=== PATIENT | male | born 1950 | race Caucasian/White ===

== ENCOUNTER 2022-04-21 17:59 | Inpatient (IN) | payer MEDICARE ==
[~2022-04-21] VITALS: Ht 180.3 cm; Wt 109.0 kg
[~2022-04-21 17:59] MED LIST: NORCO 7.5-3251 EACH PO; NORVASC 5 MG TAB5 MG PO
[2022-04-21 20:10] LABS: HEMOGLOBIN 17.9 gm/dl (14.0-17.5); RED BLOOD COUNT 5.94 M/UL (4.20-5.50); WHITE BLOOD COUNT 7.3 K/UL (4.5-11.0)
[2022-04-22 02:08] LABS: HEMOGLOBIN 15.9 gm/dl (14.0-17.5); RED BLOOD COUNT 5.29 M/UL (4.20-5.50); WHITE BLOOD COUNT 5.3 K/UL (4.5-11.0)
[2022-04-22] MEDS ORDERED: HYDROCODON-ACE1 EAC4 PO (09:20)
[2022-04-22] MEDS ORDERED: RAMIPRIL10 MG PO (09:21)
[2022-04-22] MEDS ORDERED: TRANDATE 200 M200 MG PO (09:25)
[2022-04-22] MEDS ORDERED: CATAPRES 0.1MG0.1 MG PO (09:27)
[2022-04-22 14:39] LABS: ADENOVIRUS F 40/41 Not Detected (Negative); ASTROVIRUS Not Detected (Negative); CAMPYLOBACTER Not Detected (Negative); CRYPTOSPORIDIUM Not Detected (Negative); E.COLI 0157 Not Detected (Negative); ENTAMOEBA HISTOLYTICA Not Detected (Negative); ENTEROAGGREGATIVE E.COLI (EAEC Not Detected (Negative); ENTEROPATHOGENIC E.COLI (EPEC) Not Detected (Negative); ENTEROTOXIGENIC E.COLI (ETEC) Not Detected (Negative); GIARDIA LAMBLIA Not Detected (Negative); NOROVIRUS GI/GII Not Detected (Negative); PLESIOMONAS SHIGELLOIDES Not Detected (Negative); ROTOVIRUS A Not Detected (Negative); SALMONELLA Not Detected (Negative); SAPOVIRUS Not Detected (Negative); SHIG/ENTEROINVAS.ECOLI (EIEC) Not Detected (Negative); SHIGA-LIK TOX.PRO.E.COLI (STEC Not Detected (Negative); VIBRIO Not Detected (Negative); VIBRIO CHOLERAE Not Detected (Negative); YERSINIA ENTEROCOLITICA Not Detected (Negative)
--- NOTE | 2022-04-22 15:56 | NUR ---
REPORT CALLED TO [facility] ON [facility] SURG 5 WITH ALL QUESTIONS ASKED AND ANSWERED
[2022-04-22 16:43] LABS: CLOSTRIDIUM DIFFICILE TOX A/B Not Detected (Negative)
[2022-04-23 03:18] LABS: HEMOGLOBIN 14.3 gm/dl (14.0-17.5); RED BLOOD COUNT 4.8 M/UL (4.20-5.50)
[2022-04-23 03:29] LABS: WHITE BLOOD COUNT 8.4 K/UL (4.5-11.0)
[2022-04-24 02:55] LABS: HEMOGLOBIN 14.4 gm/dl (14.0-17.5); RED BLOOD COUNT 4.86 M/UL (4.20-5.50); WHITE BLOOD COUNT 8.5 K/UL (4.5-11.0)
[2022-04-24 03:29] LABS: BUN/CREATININE RATIO 20 (0-10)
[2022-04-25 03:13] LABS: HEMOGLOBIN 14.2 gm/dl (14.0-17.5); RED BLOOD COUNT 4.83 M/UL (4.20-5.50); WHITE BLOOD COUNT 7.9 K/UL (4.5-11.0)
[2022-04-25 03:40] LABS: BUN/CREATININE RATIO 17 (0-10)
[2022-04-25] MEDS ORDERED: CIPRO500 MG PO (14:47)
== END 2022-04-25 16:20 | disposition home or self-care (01) | DRG 388 ==
LOC: ER1 17:59 → PROG CARE 22:11 → CDU 22:11 → PROG CARE 04-22 00:13 → M/S 04-22 16:09
PROVIDERS: Emergency Medicine; Internal Medicine; Physician Assistant; ADMIT Internal Medicine
DX: K56.609 Unspecified intestinal obstruction, unspecified as to partial versus complete obstruction (principal); J18.9 Pneumonia, unspecified organism; N17.9 Acute kidney failure, unspecified; E66.01 Morbid (severe) obesity due to excess calories; I12.9 Hypertensive chronic kidney disease with stage 1 through stage 4 chronic kidney disease, or unspecified chronic kidney disease; E87.6 Hypokalemia; N18.9 Chronic kidney disease, unspecified; E78.5 Hyperlipidemia, unspecified; Z98.890 Other specified postprocedural states; Z90.49 Acquired absence of other specified parts of digestive tract; Z87.442 Personal history of urinary calculi; Z68.33 Body mass index [BMI] 33.0-33.9, adult
CPT/HCPCS: 36415; 71045; 74018; 74019; 80048; 80053; 82040; 82310; 83605; 83735; 84100; 84132; 85025; 85027; 87040; 87507; 93005; 96361; 96374; 96375; 99285; C9113; G0378; J0610; J0692; J1335; J1650; J2270; J2405; J3480; Q9963; Q9967